=== PATIENT | female | born 1965 | race Caucasian/White ===

== ENCOUNTER 2018-10-06 14:58 | Outpatient (CLI) | payer BC ==
--- NOTE | 2018-10-06 15:26 | MMO ---
Bilateral MAMMO Bilat Screen [facility]. CLINICAL HISTORY: Patient is 53 years old and is seen for screening. The patient has no family history of breast cancer. The patient has no personal history of cancer. The patient has a history of Lumpectomy in 2015 - fat necrosis - UNK SIDE. VIEWS: The views performed were: bilateral craniocaudal with tomosynthesis and bilateral mediolateral oblique with tomosynthesis. FILMS COMPARED: The present examination has been compared to a prior imaging study performed at [facility] on 07/15/2016. MAMMOGRAM FINDINGS: There are scattered fibroglandular densities. There is a focal asymmetry seen in the upper-outer region of the right breast. Tomosynthesis images show the abnormality to represent superimpostion of normal breast parenchyma. There are no suspicious masses, suspicious calcifications, or new areas of architectural distortion. IMPRESSION: THERE IS NO MAMMOGRAPHIC EVIDENCE OF MALIGNANCY. A ROUTINE FOLLOW-UP MAMMOGRAM IN 1 YEAR IS RECOMMENDED. THE RESULTS OF THIS EXAM WERE SENT TO THE PATIENT. ACR BI-RADS Category 2 - Benign finding MAMMOGRAPHY NOTE: 1. A negative mammogram report should not delay a biopsy if a dominant of clinically suspicious mass is present. 2. Approximately 10% to 15% of breast cancers are not detected by mammography. 3. Adenosis and dense breasts may obscure an underlying neoplasm.
== END 2018-10-06 14:59 | disposition home or self-care (01) ==
LOC: BICMAMMO 14:58
DX: Z12.31 Encounter for screening mammogram for malignant neoplasm of breast (principal)
CPT/HCPCS: 77063; 77067

== ENCOUNTER 2018-12-08 14:42 | Outpatient (CLI) | payer BC ==
--- NOTE | 2018-12-08 15:58 | MMO ---
Right Breast MAMMO Unilat Diag [facility]. CLINICAL HISTORY: Patient is 53 years old and is seen for diagnostic exam and palpable abnormality in the right breast. The patient has no family history of breast cancer. The patient has no personal history of cancer. The patient has a history of Excisional Biopsy in 2015 - fat necrosis - UNK SIDE. VIEWS: The views performed were: right craniocaudal with tomosynthesis; right mediolateral oblique with tomosynthesis; and right mediolateral with tomosynthesis. FILMS COMPARED: The present examination has been compared to prior imaging studies performed at [facility] on 07/15/2016, 10/06/2018 and 12/08/2018. MAMMOGRAM FINDINGS: The breast is almost entirely fat. There is a mass measuring 30 millimeters with indistinct margins seen in the middle of the right breast. This has increased in size from the prior exam. It has a fat-fluid level. On ultrasound, it has fluid-solid level. Based on recent history of erythema that has resolved with antibiotics, but increasing size of mass despite antibiotics, this is consistent with an abscess. Utrasound shows solid component that would not be amenable to needle aspiration, (although the fluid component is amenable to needle aspiration). Therefore, surgical excision is recommended, followed by 3 month follow up mammogram and ultrasound. Dr. Lea discussed this in detail with the patient just after the ultrasound. She was advised to return to her primary care physician for referral to surgeon. IMPRESSION: MASS IN THE RIGHT BREAST IS PROBABLY BENIGN. FOLLOW-UP IN 6 MONTHS IS RECOMMENDED. RECOMMEND SURGICAL EXCISION, THEN 3 MONTH FOLLOW UP. THE RESULTS OF THIS EXAM WERE SENT TO THE PATIENT. ACR BI-RADS Category 3 - Probably benign finding - short interval follow-up suggested. [facility] will notify the patient of the need for additional imaging services. MAMMOGRAPHY NOTE: 1. A negative mammogram report should not delay a biopsy if a dominant of clinically suspicious mass is present. 2. Approximately 10% to 15% of breast cancers are not detected by mammography. 3. Adenosis and dense breasts may obscure an underlying neoplasm. Reported by: CLARENCE LEA MD Electonically Signed: [id number]
--- NOTE | 2018-12-08 16:49 | ULT ---
ULTRASOUND RIGHT BREAST LIMITED: 12/08/2018 HISTORY: A 53-year-old female with a palpable right breast mass. The patient had erythema in the right upper outer quadrant, which resolved with antibiotics, but the palpable lump has grown despite antibiotics. TECHNIQUE: Focused ultrasound of the palpable area at the 10 o'clock position, 6 cm from the nipple. FINDINGS: There is a mass in that location, measuring approximately 4 x 3 x 4 cm. It contains a 1.5 x 1.5 x 1 cm, smoothly circumscribed, fluid-filled, cystic component. The rest of the mass has a solid appeara nce, with homogeneously low-intermediate echogenicity. There is no central acoustic shadowing. Ther e is posterior acoustic enhancement. On the mammogram, there is a fat-fluid level, while on this ult rasound it has a fluid-solid level. There is blood flow at the periphery of this mass. Given the history, this is probably an abscess. Although the fluid-filled, cystic component would be amenable to ultrasound-guided needle aspiration, the much larger, solid components would not be amen able to needle aspiration. Therefore, surgical excision is recommended (because of increasing size d espite antibiotics). The patient stated that she had surgical excision of a similar process in the c ontralateral left breast years ago. Dr. Randolph discussed the findings and recommendations with the jeramy ent immediately after the ultrasound and recommended that she return to her primary care physician, f or referral to a surgeon. As a precautionary measure, a three-month follow-up right mammogram and a three-month follow-up right breast ultrasound are recommended, after surgical excision. IMPRESSION: 1. BI-RADS 3-Probably benign. Short interval followup suggested. 2. Recommend surgical excision of what is probably an abscess with large phlegmon in the right upper outer quadrant. 3. Recommend follow-up right mammogram and right breast ultrasound three months after surgical excis ion. POS: OFF
== END 2018-12-08 14:43 | disposition home or self-care (01) ==
LOC: BICMAMMO 14:42
PROVIDERS: ATTEND Family Medicine
DX: N63.10 Unspecified lump in the right breast, unspecified quadrant (principal)
CPT/HCPCS: G0279

== ENCOUNTER 2018-12-24 08:54 | Day surgery (SDC) | payer BC ==
[2018-12-23 10:49] VITALS: BMI 36.1
--- NOTE | 2018-12-23 12:22 | HP ---
HISTORY: 53-year-old female presents to my office, referred by Efra Quinn, [facility]. The patient had since 09/26 a mass in her outer right breast. This is slightly reddened and she has been through 3 rounds of antibiotics. She has had fat necrosis of the left breast requiring resection with wound VAC and finally flows well. She had mammograms at [facility], 12/08/2018, noting a mass in the right breast, central outer 30 mm indistinct margins, appears to be fat, fluid-filled, increased in size. Ultrasound demonstrates a solid, but central component. Ultrasound reveals a 4 x 3 x 4 cm solid mass with a 1.5 x 1.5 x 1 cm liquid center. The patient is 0, para 0. She works in [employer] in a [employer] station in [employer]. Family history is negative for breast cancer. Plan is to excise this persistent mass. She understands risks and benefits, consents. FAMILY HISTORY: Negative for breast cancer and noncontributory. SOCIAL HISTORY: Tobacco, none. Alcohol, none. ALLERGIES: SULFA. PAST MEDICAL HISTORY: Left breast surgery, fat necrosis, wound VAC. Recently started on metformin 500 mg twice a day, being treated for diabetes mellitus. REVIEW OF SYSTEMS: Ten-point noncontributory. PHYSICAL EXAMINATION: VITAL SIGNS: Weight 184 pounds, height 60 inches. Blood pressure 152/71, heart rate 95, temperature 97.6 degrees. HEAD, EARS, EYES, NOSE, AND THROAT: Unremarkable. LUNGS: Clear to auscultation. CARDIAC: Regular rate and rhythm without murmur or gallop. ABDOMEN: Soft and nontender. EXTREMITIES: Unremarkable. No ankle edema. NEUROLOGICAL: Intact. SKIN: Normal color. Left breast scar, supra-areolar incision well healed. Both axilla without masses. Right breast reveals a 6 cm mass in outer quadrant of right breast. ASSESSMENT AND PLAN: Right breast mass. Plan, excision. She understands risks and benefits, consents. This mass is smooth and mobile, but firm and radiologically is more like fat necrosis and plan would be to excise this rather than biopsy it first. whole mass to rule out a malignancy. The patient understands risks and benefits, consents. Questions answered. We will plan this for next Thursday as outpatient, general anesthesia, local. LABORATORY DATA: From [facility] in [place] 11/25/2018, sodium 135, potassium 4.0, chloride 99, BUN 20, carbon dioxide 25, creatinine 0.76, BUN 26, calcium 9.5, albumin 4.3, bilirubin 0.69. Hemoglobin 14, hematocrit 40, platelet count 361,000. Job ID: [id number]
[2018-12-24] MEDS ORDERED: ceFAZolin Sodium (SDC) 2 GM/100 ML BAG ONE (09:42)
[2018-12-24] MEDS ORDERED: Ketorolac Tromethamine 30 MG/ML VIAL ONE (09:42)
[2018-12-24] MEDS ORDERED: Fentanyl 100 MCG/2 ML VIAL ONE ×3 (09:50→12:08)
[2018-12-24 10:18] LABS: #Basophils 0.1 thou/uL (0.0-0.2); #Eosinphils 0.2 thou/uL (0.0-0.7); #Lymphocytes 1.1 thou/uL (1.20-3.40); #Monocytes 0.3 thou/uL (0.11-0.59); #Neutrophils 4.8 thou/uL (1.40-6.50); %Basophils 1.1 % (0.0-1.0); %Eosinophils 2.3 % (0.0-10.0); %Lymphocytes 17.1 % (21.0-51.0); %Monocytes 5.2 % (0.0-10.0); %Neutrophils 74.3 % (42.0-75.0); Hemoglobin 15.7 g/dL (12.0-16.0); Mean Corpuscular HGB CONC 35.4 g/dL (32.0-36.0); Mean Corpuscular Hemoglobin 29.1 pg (27.0-31.0); Mean Corpuscular Volume 82.1 fL (78.0-98.0); Mean Platelet Volume 6.5 fL (7.4-10.4); Platelet Count 374 thou/uL (130-400); RBC Distribution Width 11.8 % (11.5-14.5); Red Blood Cell (RBC) Count 5.41 mill/uL (4.20-5.40); White Blood Cell (WBC) Count 6.5 thou/uL (4.8-10.8)
[2018-12-24 10:37] LABS: Anion Gap 17 mmol/L (10-20); BUN (Urea Nitrogen) 18 mg/dL (9.8-20.1); Calc. Creatinine Clearance 94 mL/min (70-130); Calcium 9.9 mg/dL (7.8-10.44); Carbon Dioxide 21 mmol/L (22-29); Chloride 102 mmol/L (98-107); Estimated GFR-MDRD 65; Glucose 228 mg/dL (70-105); Potassium 4.4 mmol/L (3.5-5.1); Sodium 136 mmol/L (136-145)
[2018-12-24] MEDS ORDERED: Bupivacaine HCl 0.5%/Epinephrine 1:200,000/PF 30 ml Vial ONE (11:44)
[2018-12-24] MEDS ORDERED: Lidocaine 2% PF 5 ML VIAL ONE (11:44)
[2018-12-24] MEDS ORDERED: Bupivacaine/Epinephrine 0.25% 30 ML VIAL ONE (12:57)
--- NOTE | 2018-12-24 13:24 | OP ---
DATE OF PROCEDURE: 12/24/2018 PREOPERATIVE DIAGNOSIS: Right breast mass, 5 cm, tender, benign in appearance, but non resolving. POSTOPERATIVE DIAGNOSIS: Right breast mass, 5 cm, tender, benign in appearance, but non resolving. PROCEDURE PERFORMED: Excision of large right breast lateral mass. ANESTHESIA: General, local 0.25% Marcaine with epinephrine, 30 mL mixed with 0.5% Marcaine with epinephrine 30 mL, mixed with 2% Xylocaine 10 mL, total volume used. DESCRIPTION OF PROCEDURE: The patient was taken to the operating room. Under general anesthesia, right breast was prepared with ChloraPrep and draped in routine fashion. The patient had a large mass occupying the lateral aspect of the right breast. Incision made laterally, carried down through skin and subcutaneous tissue and a large breast mass excised, submitted to pathology after margin was marked for identification and orientation. Hemostasis gained with cautery. Biopsy cavity filled with local anesthetic and subcutaneous tissue was approximated with 3-0 Monocryl, skin with subdermal 4-0 Monocryl and [place] glue applied. José Luis wrap placed. Job ID: [id number]
--- NOTE | 2018-12-28 22:41 | EKG ---
Test Reason : PREOP Blood Pressure : / mmHG Vent. Rate : 073 BPM Atrial Rate : 073 BPM P-R Int : 150 ms QRS Dur : 068 ms QT Int : 396 ms P-R-T Axes : 046 050 029 degrees QTc Int : 436 ms Normal sinus rhythm Normal ECG No previous ECGs available Confirmed by Tina BEAUCHAMP ([id number]) on 12/28/2018 10:40:39 PM Referred By: MAGDALENE Confirmed By:Tina BEAUCHAMP
== END 2018-12-24 15:10 | disposition home or self-care (01) ==
LOC: SDC 08:54
PROVIDERS: ATTEND Specialist
PROC: 0HBT0ZZ Excision of Right Breast, Open Approach (ICD-10-PCS; principal; 2018-12-24)
DX: N60.01 Solitary cyst of right breast (principal); E11.9 Type 2 diabetes mellitus without complications; Z79.84 Long term (current) use of oral hypoglycemic drugs; Z88.2 Allergy status to sulfonamides
CPT/HCPCS: 80048; 85025; 88307; 93005; 93010; J0131; J0670; J0690; J1885; J2001; J3010

== ENCOUNTER 2024-01-29 09:37 | Outpatient (CLI) | payer OTHER | END 2024-01-29 09:38 | disposition home or self-care (01) | LOC: BICMAMMO 09:37 | PROVIDERS: ATTEND Internal Medicine Endocrinology, Diabetes & Metabolism | DX: Z12.31 Encounter for screening mammogram for malignant neoplasm of breast (principal); Z91.89 Other specified personal risk factors, not elsewhere classified | CPT/HCPCS: 77063; 77067 ==